=== PATIENT | female | born 1980 | race Caucasian/White ===

== ENCOUNTER 2022-03-11 11:49 | Outpatient (RCR) | payer BC, SELFPAY | END 2023-03-09 16:08 | disposition home or self-care (01) | PROVIDERS: PCP Family Medicine; Visit Provider Orthopaedic Surgery Sports Medicine | DX: M72.2 Plantar fascial fibromatosis (principal); Z51.89 Encounter for other specified aftercare | CPT/HCPCS: 97161 ==

== ENCOUNTER 2023-08-31 11:19 | Outpatient (CLI) | payer OTHER, SELFPAY | END 2023-08-31 11:20 | disposition home or self-care (01) | LOC: LKVREF 11:20 | PROVIDERS: PCP Family Medicine; Visit Provider Physician Assistant | DX: Z13.220 Encounter for screening for lipoid disorders (principal) | CPT/HCPCS: 80061 ==

== ENCOUNTER 2023-09-07 16:51 | Outpatient (CLI) | payer OTHER, SELFPAY ==
--- OUTSIDE RECORDS SUMMARY | 2023-09-07 16:58 | XMS_ITS | Continuity of Care Document ---
Author Name Unknown Organization [facility] Address [address] [place] [address] Insurance Providers Payer Plan Claims Address Claims Phone Policy Number Group Number Relation Employer Guarantor Name Guarantor Guarantor Address Guarantor Phone [place] [address] [id number] Self Aggie Palomo [address] [place] [id number] Problems Unknown Problems Results No Results Allergies, adverse reactions, alerts No known allergies and adverse reactions Medications No administered medications reported Vital Signs Date Vital Result Comment 11/19/2022 Body Height [id number] m Body Weight 81.798398393184 kg Body Mass Index 31.89 kg/m2 Social History No smoking Hx information available
--- NOTE | 2023-09-07 17:00 | CRLHL7_ITS ---
For Patients: As a result of the Century Cures Act, medical imaging exams and procedure reports are released immediately into your electronic medical record. You may view this report before your referring provider. If you have questions, please contact your health care provider. INDICATION: Dyspareunia. IUD in place for 2 years bright TECHNIQUE: Transabdominal and transvaginal scanning was performed. Transvaginal scanning was performed to optimally evaluate the endometrium and adnexa. Ovarian blood flow was evaluated with color-flow and pulsed Doppler. COMPARISON: None. FINDINGS: The uterus is mildly enlarged but normal in shape. The uterus measures 10.1 x 5.2 x 6.0 cm. No uterine mass is evident. The endometrial stripe is normal in thickness at 6 mm. The IUD but appear to be properly positioned. The ovaries are normal in appearance. The right ovary measures 4.3 x 1.3 x 1.0 cm and left 5.0 x 1.8 x 1.8 cm. Ovarian blood flow is demonstrated with color-flow and pulsed Doppler. No adnexal mass is evident. No free fluid is demonstrated. IMPRESSION: Negative pelvic ultrasound except for mildly enlarged uterus. IUD appears to be properly positioned. Dictated by Ronni Busch MD @ 09/08/2023 9:20:57 AM (Electronically Signed)
== END 2023-09-07 16:52 | disposition home or self-care (01) ==
LOC: US 16:51
PROVIDERS: PCP Family Medicine; Visit Provider Physician Assistant
DX: N94.10 Unspecified dyspareunia (principal)
CPT/HCPCS: 76830; 76856; 93976

== ENCOUNTER 2023-12-21 13:48 | Outpatient (REF) | payer OTHER, SELFPAY ==
[2023-12-23 05:30] LABS: A. fumigatus IgE <0.10 kU/L (<=0.34); Allergen A. alternata IgE <0.10 kU/L (<=0.34); Allergen Bermuda Grass IgE <0.10 kU/L (<=0.34); Allergen Cat Dander IgE <0.10 kU/L (<=0.34); Allergen Cockroach German IgE <0.10 kU/L (<=0.34); Allergen Com/Short Ragweed IgE <0.10 kU/L (<=0.34); Allergen Cottonwood Tree IgE <0.10 kU/L (<=0.34); Allergen D. farinae IgE <0.10 kU/L (<=0.34); Allergen D. pteronyssinus IgE <0.10 kU/L (<=0.34); Allergen Dog Dander IgE <0.10 kU/L (<=0.34); Allergen Elder/Maple IgE <0.10 kU/L (<=0.34); Allergen Hormodendrum IgE <0.10 kU/L (<=0.34); Allergen M racemosus IgE <0.10 kU/L (<=0.34); Allergen Mouse Epithelium IgE <0.10 kU/L (<=0.34); Allergen Mtn Cedar Tree IgE <0.10 kU/L (<=0.34); Allergen P. notatum IgE <0.10 kU/L (<=0.34); Allergen Russian Thistle IgE <0.10 kU/L (<=0.34); Allergen Sheep Sorrel IgE <0.10 kU/L (<=0.34); Allergen Timothy Grass IgE <0.10 kU/L (<=0.34); Allergen Tree, Elm Tree IgE <0.10 kU/L (<=0.34); Allergen WhiteMulberryTree IgE <0.10 kU/L (<=0.34); Immunoglobulin E 8 kU/L (<=214)
== END 2023-12-21 13:49 | disposition home or self-care (01) ==
LOC: NPINS 13:48
PROVIDERS: PCP Family Medicine; Visit Provider Allergy & Immunology
DX: J30.9 Allergic rhinitis, unspecified (principal)
CPT/HCPCS: 82785; 86003